=== PATIENT | male | born 1945 | race Caucasian/White ===

== ENCOUNTER 2017-09-11 10:39 | Emergency (ER) | payer MEDICARE, SELFPAY ==
[2017-09-11 10:51] VITALS: BP 153/80; PULSE 77; RESP 13; TEMP 36.9; O2SAT 95
--- NOTE | 2017-09-11 10:56 | ED.UPPEXIN ---
HPI - Extremity Injury (Upper) General Chief Complaint: Extremity Injury, Upper Stated Complaint: SWELLING RIGHT ARM Time Seen by Provider: 09/11/17 10:56 Source: patient Mode of arrival: ambulatory Limitations: no limitations History of Present Illness HPI narrative: 72-year-old male with history of hypertension, hyperlipidemia presents with swelling and pain of his right elbow over the past few days and now some erythema and swelling of his proximal arm as well. The patient denies any systemic findings such is nausea, vomiting, fever or chills. He does think he bumped his elbow on something few days ago but is unsure. MD complaint: injury to: right and elbow Other injuries: none Handedness: right Place: home Relieving factors: immobilization Related Data Home Medications Medication Instructions Recorded Confirmed multivitamin 1 cap PO Q DAY #0 03/27/11 09/11/17 omega 7-bcz-btb-fish oil [Fish Oil] 1 cap PO Q DAY #0 03/27/11 09/11/17 vitamin E 1 cap PO DAILY #0 03/27/11 09/11/17 ibuprofen [Advil] 400 mg PO Q DAY #0 05/04/11 09/11/17 Vitamin B-12 1 tab PO DAILY 09/11/17 09/11/17 amlodipine 5 mg PO DAILY 09/11/17 09/11/17 aspirin 81 mg PO DAILY 09/11/17 09/11/17 atorvastatin 10 mg PO DAILY 09/11/17 09/11/17 coenzyme Q10 [CoQ-10] 100 mg PO DAILY 09/11/17 09/11/17 cranberry 1 cap PO DAILY 09/11/17 09/11/17 milk wmbzbug-LQR-pjmcyo-turmer 1 tab PO DAILY 09/11/17 09/11/17 [Liver Complex] Previous Rx's Medication Instructions Recorded doxycycline hyclate 100 mg PO BID #20 tab 09/11/17 Allergies Allergy/AdvReac Type Severity Reaction Status Date / Time lisinopril [LISINOPRIL] AdvReac Intermediate cough Unverified 05/30/17 13:04 Review of Systems Review of Systems All systems reviewed & are unremarkable except as noted in HPI and below Constitutional Denies chills, Denies fever(s), Denies lethargy and Denies weakness Eyes Denies change in vision, Denies eye discharge, Denies irritation and Denies loss of vision ENT Ears, Nose, Mouth, and Throat: Denies change in voice, Denies neck pain and Denies sore throat Cardiovascular Denies chest pain, Denies irregular heart rhythm, Denies lightheadedness, Denies palpitations, Denies dyspnea, Denies dyspnea on exertion and Denies orthopnea Respiratory Denies cough, Denies dyspnea, Denies dyspnea on exertion and Denies wheezing Gastrointestinal Gastrointestinal: Denies abdominal pain, Denies change in bowel habits, Denies diarrhea, Denies nausea and Denies vomiting Genitourinary Denies hematuria, Denies flank pain, Denies urinary incontinence and Denies urinary urgency Musculoskeletal Reports joint swelling, Reports limited range of motion and Denies neck pain Integumentary/Breasts Denies pruritus, Reports erythema, Denies rash, Reports skin pain and Denies wounds Neurologic Denies confusion, Denies loss of vision and Denies weakness Psychiatric Denies anxiety, Denies confusion, Denies depression, Denies homicidal ideation and Denies suicidal ideation Endocrine Denies palpitations Hematologic/Lymphatic Denies easy bruising Allergic/Immunologic Denies wheezing Exam Narrative Exam Narrative: Pleasant 72-year-old male in no obvious distress Initial Vital Signs Initial Vital Signs: Vital Signs Temperature 98.4 F 09/11/17 10:51 Pulse Rate 77 09/11/17 10:51 Respiratory Rate 13 09/11/17 10:51 Blood Pressure 153/80 H 09/11/17 10:51 Pulse Oximetry 95 09/11/17 10:51 Const General: cooperative and well developed Nutritional Appearance: well nourished Orientation: alert, awake, oriented x3 and not confused Resp Effort & Inspection: normal respiratory effort, able to speak in complete sentences, no respiratory distress and no use of accessory muscles Auscultation: clear to auscultation bilaterally, no rales, no rhonchi and no wheezes GI Inspection: non-distended Palpation: soft, no hepatosplenomegaly, No guarding, No pulsatile mass and No tender Auscultation: normal bowel sounds Skin General: no rashes or lesions noted, erythema, fluctuance, No jaundice, No petechiae and warm Extrem Right upper extremity: elbow/forearm (Patient has notable swelling with fluctuance of right olecranon, it is tender to palpation. Patient has full but slightly painful range of motion at the elbow and no findings consistent with septic arthritis. There is some overall swelling and erythema proximal to the bursa) Procedures Bursa Procedure Time Out Performed: Yes Side of body: right Site of Procedure: olecranon bursa Antisepsis Used: Povidone-Iodine1% and Chlorhexidine Local Anesthetic: lidocaine 1% and with bicarb Amount of anesthesia used (mL): 3 Fluid obtained (mL): 24 Fluid Type: bloody Lidocaine Added to Medication: No Patient Tolerated Procedure: Well Complications: none Additional Comments: Sent for culture, then wrapped in a pressure dressing Course Orders Ordered: ED Orders 09/11/17 12:40 Wound Culture and Gram Stain Stat Vital Signs - 8 hr 09/11/17 10:51 Temperature 98.4 F Pulse Rate 77 Respiratory Rate 13 Blood Pressure 153/80 H Pulse Oximetry 95 MDM - Extremity Injury (Upper) Medical Records Attestation: I reviewed the patient's medical records. Lab Data Attestation: I reviewed the patient's lab results. Result diagrams: 09/11/17 11:07 09/11/17 11:07 Lab Results 09/11/17 09/11/17 09/11/17 Range/Units 11:07 11:07 11:07 WBC 6.1 (4.5-11.0) X10^3/uL RBC 4.46 L (4.5-5.9) X10^6/uL Hgb 14.6 (13.5-17.5) g/dL Hct 42.3 (41-53) % MCV 94.8 (80-100) fL MCH 32.7 (26-34) PG MCHC 34.4 (30-36) % RDW 12.6 (11.6-14.8) % Plt Count 166 (150-400) X10^3/uL Neut % (Auto) 67.8 (50-75) % Lymph % (Auto) 16.8 L (25-40) % Logan % (Auto) 12.3 (3-14) % Eos % (Auto) 2.3 (2-4) % Baso % (Auto) 0.8 (0-2) % Neut # (Auto) 4100 (0576-9142) /uL ESR 14 (0-15) MM/HR Sodium 136 L (137-145) mmol/L Potassium 3.9 (3.4-5.1) mmol/L Chloride 101 (98-107) mmol/L Carbon Dioxide 27 (22-32) mmol/L BUN 16 (9-20) mg/dL Creatinine 0.80 (0.66-1.25) mg/dL Estimated GFR > 60.0 (>60) mL/min BUN/Creatinine Ratio 20.0 (6-22) Glucose 110 (80-110) mg/dL Calcium 8.5 (8.4-10.2) mg/dL C-Reactive Protein 7.4 H (<1.0) mg/dL Procalcitonin < 0.05 (<0.5) ng/mL Imaging Data Venous US: Radiologist's impression: PROCEDURE: US PERIPH VENOUS UP EXTREM RT INDICATIONS: Painful swollen right arm. TECHNIQUE: Real-time imaging, as well as color and pulse Doppler interrogation, was performed of the right upper extremity deep veins from the inferior neck to the antecubital fossa. COMPARISON: None. FINDINGS: The internal jugular vein, visualized portions of the subclavian vein, axillary, and brachial veins are free of intraluminal thrombus. Where physically possible, the veins are normally compressible. Color and pulse Doppler demonstrate intraluminal flow. IMPRESSION: Negative ultrasound for deep venous thrombosis of the right upper extremity. Dictated by: Delano Emery M.D. on 09/11/2017 at 11:54 Approved by: Delano Emery M.D. on 09/11/2017 at 11:58 [facility] Narrative Medical decision making narrative: There is a small abrasion consistent with superficial injury and swelling and tenderness right olecranon. Patient has full range of motion and no findings consistent with septic arthritis. DVT study is normal and labs are unremarkable. Patient has no systemic findings. Based on the preceding this seems reasonable to treat the patient as an outpatient with close follow-up of Discharge Plan Departure Patient Disposition: Home, Self-Care Clinical Impression: Bursitis of elbow, Cellulitis of arm, right Discharge Date/Time: 09/11/17 12:27 Interventions: ED Discharge Assessment Last Done: 09/11/17 12:26 Instructions: DI for Cellulitis -- Adult Activity Restrictions/Additional Instructions: *You have been diagnosed with [ right olecranon bursitis with cellulitis ] *What to do: *Take medications as directed *Follow up with your primary care provider in 2-3 days, call for an appointment. Let them know you were seen in the Emergency Department and that we ask that you be seen in follow up *Return to ER if you should have any new, worsening or concerning symptoms, such as [worsening pain, redness, swelling or if you start to feel sick with fever, shaking chills nausea vomiting or other concerning symptoms ] Prescriptions: New doxycycline hyclate 100 mg tablet 100 mg PO BID Qty: 20 RF: 0 No Action multivitamin Tablet 1 cap PO Q DAY Qty: 0 RF: 0 omega 5-dda-zwr-fish oil [Fish Oil] 1,000 mg (120 mg-180 mg) Capsule 1 cap PO Q DAY Qty: 0 RF: 0 vitamin E 1 cap PO DAILY Qty: 0 RF: 0 ibuprofen [Advil] 200 MG tablet 400 mg PO Q DAY Qty: 0 RF: 0 atorvastatin 10 mg Tablet 10 mg PO DAILY RF: 0 amlodipine 5 mg Tablet 5 mg PO DAILY RF: 0 aspirin 81 mg Tablet,Delayed Release (Dr/Ec) 81 mg PO DAILY RF: 0 coenzyme Q10 [CoQ-10] 100 mg Capsule 100 mg PO DAILY RF: 0 milk [id number]-QDZ-xhahbh-turmer [Liver Complex] 250-250 mg Tablet 1 tab PO DAILY RF: 0 Vitamin B-12 1 tab PO DAILY RF: 0 cranberry 1 cap PO DAILY RF: 0
--- NOTE | 2017-09-11 11:05 | DI.US.S_ITS ---
PROCEDURE: US PERIPH VENOUS UP EXTREM RT INDICATIONS: Painful swollen right arm. TECHNIQUE: Real-time imaging, as well as color and pulse Doppler interrogation, was performed of the right upper extremity deep veins from the inferior neck to the antecubital fossa. COMPARISON: None. FINDINGS: The internal jugular vein, visualized portions of the subclavian vein, axillary, and brachial veins are free of intraluminal thrombus. Where physically possible, the veins are normally compressible. Color and pulse Doppler demonstrate intraluminal flow. IMPRESSION: Negative ultrasound for deep venous thrombosis of the right upper extremity. Dictated by: Delano Emery M.D. on 09/11/2017 at 11:54 Approved by: Delano Emery M.D. on 09/11/2017 at 11:58
[2017-09-11 11:20] LABS: Add Manual Diff / Slide Review NO; Basophils Percent Auto 0.8 % (0-2); Eosinophils Percent Auto 2.3 % (2-4); Hematocrit 42.3 % (41-53); Hemoglobin 14.6 g/dL (13.5-17.5); Lymphocytes Percent Auto 16.8 % (25-40); Mean Corpuscular HGB Conc 34.4 % (30-36); Mean Corpuscular Hemoglobin 32.7 PG (26-34); Mean Corpuscular Volume 94.8 fL (80-100); Monocytes Percent Auto 12.3 % (3-14); Neutrophils Absolute Auto 4100 /uL (3000-5900); Neutrophils Percent Auto 67.8 % (50-75); Platelet Count 166 X10^3/uL (150-400); Red Blood Cell Count 4.46 X10^6/uL (4.5-5.9); Red Cell Distribution Width 12.6 % (11.6-14.8); White Blood Cell Count 6.1 X10^3/uL (4.5-11.0)
[2017-09-11 11:32] LABS: Blood Urea Nitrogen 16 mg/dL (9-20); C-Reactive Protein Quant 7.4 mg/dL (<1.0); Calcium 8.5 mg/dL (8.4-10.2); Carbon Dioxide 27 mmol/L (22-32); Chloride 101 mmol/L (98-107); Estimated Glomerular Filt Rate > 60.0 mL/min (>60); Glucose 110 mg/dL (80-110); HEMOLYSIS < 15 (0-50); Potassium 3.9 mmol/L (3.4-5.1); Sodium 136 mmol/L (137-145)
[2017-09-11 11:47] LABS: Erythrocyte Sedimentation Rate 14 MM/HR (0-15)
[2017-09-11 11:51] LABS: Procalcitonin < 0.05 ng/mL (<0.5)
--- NOTE | 2017-09-11 20:41 | ED_ITS ---
HPI - Extremity Injury (Upper) General Chief Complaint: Extremity Injury, Upper Stated Complaint: SWELLING RIGHT ARM Time Seen by Provider: 09/11/17 10:56 Source: patient Mode of arrival: ambulatory Limitations: no limitations History of Present Illness HPI narrative: 72-year-old male with history of hypertension, hyperlipidemia presents with swelling and pain of his right elbow over the past few days and now some erythema and swelling of his proximal arm as well. The patient denies any systemic findings such is nausea, vomiting, fever or chills. He does think he bumped his elbow on something few days ago but is unsure. MD complaint: injury to: right and elbow Other injuries: none Handedness: right Place: home Relieving factors: immobilization Related Data Home Medications Medication Instructions Recorded Confirmed multivitamin 1 cap PO Q DAY #0 03/27/11 09/11/17 omega 0-mvd-ihr-fish oil [Fish Oil] 1 cap PO Q DAY #0 03/27/11 09/11/17 vitamin E 1 cap PO DAILY #0 03/27/11 09/11/17 ibuprofen [Advil] 400 mg PO Q DAY #0 05/04/11 09/11/17 Vitamin B-12 1 tab PO DAILY 09/11/17 09/11/17 amlodipine 5 mg PO DAILY 09/11/17 09/11/17 aspirin 81 mg PO DAILY 09/11/17 09/11/17 atorvastatin 10 mg PO DAILY 09/11/17 09/11/17 coenzyme Q10 [CoQ-10] 100 mg PO DAILY 09/11/17 09/11/17 cranberry 1 cap PO DAILY 09/11/17 09/11/17 milk xmdbcji-OUO-smiplf-turmer 1 tab PO DAILY 09/11/17 09/11/17 [Liver Complex] Previous Rx's Medication Instructions Recorded doxycycline hyclate 100 mg PO BID #20 tab 09/11/17 Allergies Allergy/AdvReac Type Severity Reaction Status Date / Time lisinopril [LISINOPRIL] AdvReac Intermediate cough Unverified 05/30/17 13:04 Review of Systems Review of Systems All systems reviewed & are unremarkable except as noted in HPI and below Constitutional Denies chills, Denies fever(s), Denies lethargy and Denies weakness Eyes Denies change in vision, Denies eye discharge, Denies irritation and Denies loss of vision ENT Ears, Nose, Mouth, and Throat: Denies change in voice, Denies neck pain and Denies sore throat Cardiovascular Denies chest pain, Denies irregular heart rhythm, Denies lightheadedness, Denies palpitations, Denies dyspnea, Denies dyspnea on exertion and Denies orthopnea Respiratory Denies cough, Denies dyspnea, Denies dyspnea on exertion and Denies wheezing Gastrointestinal Gastrointestinal: Denies abdominal pain, Denies change in bowel habits, Denies diarrhea, Denies nausea and Denies vomiting Genitourinary Denies hematuria, Denies flank pain, Denies urinary incontinence and Denies urinary urgency Musculoskeletal Reports joint swelling, Reports limited range of motion and Denies neck pain Integumentary/Breasts Denies pruritus, Reports erythema, Denies rash, Reports skin pain and Denies wounds Neurologic Denies confusion, Denies loss of vision and Denies weakness Psychiatric Denies anxiety, Denies confusion, Denies depression, Denies homicidal ideation and Denies suicidal ideation Endocrine Denies palpitations Hematologic/Lymphatic Denies easy bruising Allergic/Immunologic Denies wheezing Exam Narrative Exam Narrative: Pleasant 72-year-old male in no obvious distress Initial Vital Signs Initial Vital Signs: Vital Signs Temperature 98.4 F 09/11/17 10:51 Pulse Rate 77 09/11/17 10:51 Respiratory Rate 13 09/11/17 10:51 Blood Pressure 153/80 H 09/11/17 10:51 Pulse Oximetry 95 09/11/17 10:51 Const General: cooperative and well developed Nutritional Appearance: well nourished Orientation: alert, awake, oriented x3 and not confused Resp Effort & Inspection: normal respiratory effort, able to speak in complete sentences, no respiratory distress and no use of accessory muscles Auscultation: clear to auscultation bilaterally, no rales, no rhonchi and no wheezes GI Inspection: non-distended Palpation: soft, no hepatosplenomegaly, No guarding, No pulsatile mass and No tender Auscultation: normal bowel sounds Skin General: no rashes or lesions noted, erythema, fluctuance, No jaundice, No petechiae and warm Extrem Right upper extremity: elbow/forearm (Patient has notable swelling with fluctuance of right olecranon, it is tender to palpation. Patient has full but slightly painful range of motion at the elbow and no findings consistent with septic arthritis. There is some overall swelling and erythema proximal to the bursa) Procedures Bursa Procedure Time Out Performed: Yes Side of body: right Site of Procedure: olecranon bursa Antisepsis Used: Povidone-Iodine1% and Chlorhexidine Local Anesthetic: lidocaine 1% and with bicarb Amount of anesthesia used (mL): 3 Fluid obtained (mL): 24 Fluid Type: bloody Lidocaine Added to Medication: No Patient Tolerated Procedure: Well Complications: none Additional Comments: Sent for culture, then wrapped in a pressure dressing Course Orders Ordered: ED Orders 09/11/17 12:40 Wound Culture and Gram Stain Stat Vital Signs - 8 hr 09/11/17 10:51 Temperature 98.4 F Pulse Rate 77 Respiratory Rate 13 Blood Pressure 153/80 H Pulse Oximetry 95 MDM - Extremity Injury (Upper) Medical Records Attestation: I reviewed the patient's medical records. Lab Data Attestation: I reviewed the patient's lab results. Result diagrams: 09/11/17 11:07 09/11/17 11:07 Lab Results 09/11/17 09/11/17 09/11/17 Range/Units 11:07 11:07 11:07 WBC 6.1 (4.5-11.0) X10^3/uL RBC 4.46 L (4.5-5.9) X10^6/uL Hgb 14.6 (13.5-17.5) g/dL Hct 42.3 (41-53) % MCV 94.8 (80-100) fL MCH 32.7 (26-34) PG MCHC 34.4 (30-36) % RDW 12.6 (11.6-14.8) % Plt Count 166 (150-400) X10^3/uL Neut % (Auto) 67.8 (50-75) % Lymph % (Auto) 16.8 L (25-40) % Dukes % (Auto) 12.3 (3-14) % Eos % (Auto) 2.3 (2-4) % Baso % (Auto) 0.8 (0-2) % Neut # (Auto) 4100 (8418-8472) /uL ESR 14 (0-15) MM/HR Sodium 136 L (137-145) mmol/L Potassium 3.9 (3.4-5.1) mmol/L Chloride 101 (98-107) mmol/L Carbon Dioxide 27 (22-32) mmol/L BUN 16 (9-20) mg/dL Creatinine 0.80 (0.66-1.25) mg/dL Estimated GFR > 60.0 (>60) mL/min BUN/Creatinine Ratio 20.0 (6-22) Glucose 110 (80-110) mg/dL Calcium 8.5 (8.4-10.2) mg/dL C-Reactive Protein 7.4 H (<1.0) mg/dL Procalcitonin < 0.05 (<0.5) ng/mL Imaging Data Venous US: Radiologist's impression: PROCEDURE: US PERIPH VENOUS UP EXTREM RT INDICATIONS: Painful swollen right arm. TECHNIQUE: Real-time imaging, as well as color and pulse Doppler interrogation, was performed of the right upper extremity deep veins from the inferior neck to the antecubital fossa. COMPARISON: None. FINDINGS: The internal jugular vein, visualized portions of the subclavian vein , axillary, and brachial veins are free of intraluminal thrombus. Where physically possible, the veins are normally compressible. Color and pulse Doppler demonstrate intraluminal flow. IMPRESSION: Negative ultrasound for deep venous thrombosis of the right upper extremity. Dictated by: Delano Emery M.D. on 09/11/2017 at 11:54 Approved by: Delano Emery M.D. on 09/11/2017 at 11:58 [facility] Narrative Medical decision making narrative: There is a small abrasion consistent with superficial injury and swelling and tenderness right olecranon. Patient has full range of motion and no findings consistent with septic arthritis. DVT study is normal and labs are unremarkable. Patient has no systemic findings. Based on the preceding this seems reasonable to treat the patient as an outpatient with close follow-up of Discharge Plan Departure Patient Disposition: Home, Self-Care Clinical Impression: Bursitis of elbow, Cellulitis of arm, right Discharge Date/Time: 09/11/17 12:27 Interventions: ED Discharge Assessment Last Done: 09/11/17 12:26 Instructions: DI for Cellulitis -- Adult Activity Restrictions/Additional Instructions: *You have been diagnosed with [ right olecranon bursitis with cellulitis ] *What to do: *Take medications as directed *Follow up with your primary care provider in 2-3 days, call for an appointment. Let them know you were seen in the Emergency Department and that we ask that you be seen in follow up *Return to ER if you should have any new, worsening or concerning symptoms , such as [worsening pain, redness, swelling or if you start to feel sick with fever, shaking chills nausea vomiting or other concerning symptoms ] Prescriptions: New doxycycline hyclate 100 mg tablet 100 mg PO BID Qty: 20 RF: 0 No Action multivitamin Tablet 1 cap PO Q DAY Qty: 0 RF: 0 omega 1-lzu-lxj-fish oil [Fish Oil] 1,000 mg (120 mg-180 mg) Capsule 1 cap PO Q DAY Qty: 0 RF: 0 vitamin E 1 cap PO DAILY Qty: 0 RF: 0 ibuprofen [Advil] 200 MG tablet 400 mg PO Q DAY Qty: 0 RF: 0 atorvastatin 10 mg Tablet 10 mg PO DAILY RF: 0 amlodipine 5 mg Tablet 5 mg PO DAILY RF: 0 aspirin 81 mg Tablet,Delayed Release (Dr/Ec) 81 mg PO DAILY RF: 0 coenzyme Q10 [CoQ-10] 100 mg Capsule 100 mg PO DAILY RF: 0 milk [id number]-YDX-kpazsv-turmer [Liver Complex] 250-250 mg Tablet 1 tab PO DAILY RF: 0 Vitamin B-12 1 tab PO DAILY RF: 0 cranberry 1 cap PO DAILY RF: 0
== END 2017-09-11 12:27 | disposition home or self-care (01) ==
PROVIDERS: Emergency Provider Emergency Medicine; PCP Internal Medicine
DX: M70.31 Other bursitis of elbow, right elbow (principal); L03.113 Cellulitis of right upper limb
CPT/HCPCS: 20605; 36591; 80048; 84145; 85025; 85651; 86140; 87070; 87075; 87077; 87147; 87186; 87205; 93971; 99282; 99284

== ENCOUNTER 2018-05-29 10:00 | Emergency (ER) | payer MEDICARE, SELFPAY ==
[2018-05-29 10:12] VITALS: BP 185/99; PULSE 80; RESP 20; TEMP 36.5; O2SAT 99
--- NOTE | 2018-05-29 11:15 | ED.BACK ---
HPI - Back Pain/Injury General Chief Complaint: Back Pain/Injury Stated Complaint: tripped over barstool at home, hurt his back Time Seen by Provider: 05/29/18 11:15 Source: patient Mode of arrival: ambulatory Limitations: no limitations History of Present Illness HPI Narrative: 72-year-old male here for evaluation of a left upper back injury. He states that he tripped while getting off of a stool at his house and landed on the corner of a pole. Did not hit his head. Was able to ambulate afterwards. No shortness of breath. no other injuries reported Related Data Home Medications Medication Instructions Recorded Confirmed multivitamin 1 cap PO DAILY #0 03/27/11 05/29/18 omega 2-xed-jte-fish oil [Fish Oil] 1 cap PO DAILY #0 03/27/11 05/29/18 vitamin E 1 cap PO DAILY #0 03/27/11 05/29/18 ibuprofen [Advil] 400 mg PO PRN PRN #0 05/04/11 05/29/18 Vitamin B-12 1 tab PO DAILY 09/11/17 05/29/18 amlodipine 5 mg PO DAILY 09/11/17 05/29/18 aspirin 81 mg PO DAILY 09/11/17 05/29/18 atorvastatin 10 mg PO DAILY 09/11/17 05/29/18 coenzyme Q10 [CoQ-10] 100 mg PO DAILY 09/11/17 05/29/18 cranberry 1 cap PO DAILY 09/11/17 05/29/18 Previous Rx's Medication Instructions Recorded docusate sodium [Colace] 100 mg PO DAILY PRN #14 cap 05/29/18 hydrocodone-acetaminophen [[place]] 1 tab PO Q4-6H PRN #20 tab 05/29/18 Allergies Allergy/AdvReac Type Severity Reaction Status Date / Time lisinopril [LISINOPRIL] AdvReac Intermediate cough Verified 05/29/18 12:50 Review of Systems Constitutional Denies fatigue, Denies frequent falls and Denies headache(s) ENT Ears, Nose, Mouth, and Throat: Denies vertigo, Denies dizziness, Denies headache(s) and Denies disequilibrium Cardiovascular Denies chest pain, Denies dyspnea and Denies dyspnea on exertion Respiratory Denies dyspnea and Denies dyspnea on exertion Gastrointestinal Gastrointestinal: Denies abdominal pain, Denies nausea and Denies vomiting Musculoskeletal Comments: Left upper back pain Integumentary/Breasts Denies rash Neurologic Denies vertigo, Denies dizziness, Denies frequent falls, Denies headache(s) and Denies disequilibrium Endocrine Denies fatigue Hematologic/Lymphatic Denies easy bleeding and Denies easy bruising [facility] Medical History Hypertension (Acute) Social History Smoking Status: Former smoker Social History Smoking Status: Former smoker Exam Initial Vital Signs Initial Vital Signs: Vital Signs Temperature 97.7 F 05/29/18 10:12 Pulse Rate 80 05/29/18 10:12 Respiratory Rate 20 05/29/18 10:12 Blood Pressure 185/99 H 05/29/18 10:12 Pulse Oximetry 99 05/29/18 10:12 Const General: cooperative, well developed, well groomed and No acute distress Orientation: alert, awake and oriented x3 HENMT Head: normal to inspection and normocephalic Resp Effort & Inspection: normal respiratory effort Auscultation: clear to auscultation bilaterally Cardio Rate: regular rate Rhythm: regular rhythm Back/Spine/Pelvis Other: Patient with fullness and tenderness to palpation left lower thoracic region paraspinal. No breaks in the skin. Skin Lesions: no lesions Rashes: no rashes Neuro General: alert, awake and oriented x3 Cognition: normal cognition Speech: speech normal Extrem General: normal to inspection and capillary refill normal Psych Appearance: grossly normal and well kempt Course Orders Ordered: ED Orders 05/29/18 11:21 XR ribs LT min 3V w CXR1V Stat Discontinued Medications Hydromorphone HCl (Dilaudid) 1 mg IM Q4H PRN PRN Reason: Pain, Severe (7-10) Last Admin: 05/29/18 12:14 Dose: 1 mg Ketorolac Tromethamine (Toradol) 15 mg IM NOW ONE Stop: 05/29/18 11:22 Last Admin: 05/29/18 12:14 Dose: 15 mg Vital Signs - 8 hr 05/29/18 10:12 05/29/18 12:52 Temperature 97.7 F Pulse Rate 80 69 Respiratory Rate 20 15 Blood Pressure 185/99 H Blood Pressure [Left Arm] 146/63 H Pulse Oximetry 99 96 [facility] - Back Pain/Injury Imaging Data Chest x-ray: Radiologist's impression: [address] [address] XRay Report Signed Patient: Cheikh Gonzalez CMR#: [id number] : 4Acct:[id number] Age/Sex: 72 / MDate of Service: 05/29/18 Loc: ED Accession Number: [id number] Procedure: XR ribs LT min 3V w CXR1V Ordering Provider: Marques Cervantes D.O. PROCEDURE: XR RIBS LT MIN 3V W CXR1V INDICATIONS: Posterior left rib pain after fall TECHNIQUE: 2 views of the left ribs were acquired, along with a single view chest. COMPARISON: None. FINDINGS: Surgical changes and devices: None. Bones and chest wall: Slightly displaced fractures involving left posterior eighth, ninth and 10th ribs are seen. No suspicious bony lesions. Overlying soft tissues appear unremarkable. Lungs and pleura: No pleural effusions or pneumothorax. Lungs appear clear. Mediastinum: Mediastinal contours appear normal. Heart size is normal. IMPRESSION: Slightly displaced left posterior eighth, ninth and 10th rib fractures. No acute cardiopulmonary pathology. Dictated by: Jeferson Davis M.D. on 05/29/2018 at 12:11 Approved by: Jeferson Davis M.D. on 05/29/2018 at 12:13 [facility] Narrative Medical decision making narrative: Patient not in any respiratory distress. No breaks in the skin. Does have posterior rib fractures on the left. Patient states he feels better after medications here in the emergency department. There is no indication of underlying lung injury. We did discuss the importance of him taking big deep breaths. We did discuss the importance of him try to keep his pain under control and will send home with pain medication. He was given strict return precautions and follow-up instructions. Patient expressed understanding and agreement with plan. Discharge Plan Departure Patient Disposition: Home Clinical Impression: Multiple fractures of ribs Qualifiers: Encounter type: initial encounter Fracture type: closed Laterality: left Qualified Code(s): S22.42XA - Multiple fractures of ribs, left side, initial encounter for closed fracture Instructions: DI for Rib Fracture Activity Restrictions/Additional Instructions: It is important that we try to keep your pain is controlled as possible so that you can periodically taped big deep breaths. There is no medication that will take the pain completely away however use the medication that you were given a prescription for today to control it as much as possible. Contact your primary care doctor for follow-up. Your only restrictions are to avoid activities that make your symptoms worse. Return to the emergency department for any new symptoms, fevers, problems breathing, worsening pain, or any other concerning symptoms. Prescriptions: New hydrocodone-acetaminophen [[place]] 5-325 mg tablet 1 tab PO Q4-6H PRN (Reason: pain) Qty: 20 RF: 0 docusate sodium [Colace] 100 mg capsule 100 mg PO DAILY PRN (Reason: constipation) Qty: 14 RF: 0 No Action multivitamin Tablet 1 cap PO DAILY Qty: 0 RF: 0 omega 6-ifb-wys-fish oil [Fish Oil] 1,000 mg (120 mg-180 mg) Capsule 1 cap PO DAILY Qty: 0 RF: 0 vitamin E 1 cap PO DAILY Qty: 0 RF: 0 ibuprofen [Advil] 200 MG tablet 400 mg PO PRN PRN (Reason: pain) Qty: 0 RF: 0 atorvastatin 10 mg Tablet 10 mg PO DAILY RF: 0 amlodipine 5 mg Tablet 5 mg PO DAILY RF: 0 aspirin 81 mg Tablet,Delayed Release (Dr/Ec) 81 mg PO DAILY RF: 0 coenzyme Q10 [CoQ-10] 100 mg Capsule 100 mg PO DAILY RF: 0 Vitamin B-12 1 tab PO DAILY RF: 0 cranberry 1 cap PO DAILY RF: 0 Referrals: Cheikh Alfredo MD [Primary Care Provider] -
--- NOTE | 2018-05-29 11:21 | DI.RAD.S_ITS ---
PROCEDURE: XR RIBS LT MIN 3V W CXR1V INDICATIONS: Posterior left rib pain after fall TECHNIQUE: 2 views of the left ribs were acquired, along with a single view chest. COMPARISON: None. FINDINGS: Surgical changes and devices: None. Bones and chest wall: Slightly displaced fractures involving left posterior eighth, ninth and 10th ribs are seen. No suspicious bony lesions. Overlying soft tissues appear unremarkable. Lungs and pleura: No pleural effusions or pneumothorax. Lungs appear clear. Mediastinum: Mediastinal contours appear normal. Heart size is normal. IMPRESSION: Slightly displaced left posterior eighth, ninth and 10th rib fractures. No acute cardiopulmonary pathology. Dictated by: Jeferson Davis M.D. on 05/29/2018 at 12:11 Approved by: Jeferson Davis M.D. on 05/29/2018 at 12:13
--- NOTE | 2018-05-29 12:05 | PC.NURSE ---
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 now with left back pain, hurts to moved, ok breathing. has been taking advil 3 tabs every 3 hours. also uses ice packed.
[2018-05-29] MEDS: KETOROLAC 60 MG/2 ML VIAL 15 MG IM (12:14)
[2018-05-29] MEDS: HYDROMORPHONE 2 MG INJ 1 MG IM (12:14)
[2018-05-29 12:52] VITALS: BP 146/63; PULSE 69; RESP 15; O2SAT 96
== END 2018-05-29 13:06 | disposition home or self-care (01) ==
PROVIDERS: Emergency Provider Emergency Medicine; PCP Internal Medicine
DX: S22.42XA Multiple fractures of ribs, left side, initial encounter for closed fracture (principal); W19.XXXA Unspecified fall, initial encounter
CPT/HCPCS: 71101; 96372; 99283; J1170; J1885